=== PATIENT | male | born 1970 | race Caucasian/White ===

== ENCOUNTER 2017-02-04 19:21 | Emergency (ER) | payer BC ==
[2017-02-04] MEDS ORDERED: Cephalexin CAP* 500 MG PO ONE (19:29)
--- NOTE | 2017-02-04 19:36 | UC ---
UC General HPI - HPI Summary HPI Summary: Patient cut the left thumb on a knife 3 days ago, the cut is scabbed, but increased redness and swelling around the cut, area is non fluctuant, UTD on tetanus. - History of Current Complaint Stated Complaint: LEFT THUMB SKIN COMPLAINT Time Seen by Provider: 02/04/17 19:27 Hx Obtained From: Patient Onset/Duration: Sudden Onset, Lasting Days Timing: Constant Onset Severity: Mild Current Severity: Moderate - Allergy/Home Medications Allergies/Adverse Reactions: Allergies Allergy/AdvReac Type Severity Reaction Status Date / Time No Known Allergies Allergy Verified 02/04/17 19:29 Home Medications: Home Medications Atorvastatin* [Lipitor*] 20 mg PO DAILY 02/04/17 [History Confirmed 02/04/17] Lisinopril [Prinivil TAB 20 mg] 20 mg PO DAILY 02/04/17 [History Confirmed 02/04] PMH/Surg Hx/FS Hx/Imm Hx Previously Healthy: Yes - Surgical History Surgical History: None - Family History Known Family History: Negative: Cardiac Disease, Hypertension - Social History Alcohol Use: None Substance Use Type: None Smoking Status (MU): Never Smoked Tobacco Review of Systems Constitutional: Negative Skin: Other - closed small laceration with increased redness Eyes: Negative ENT: Negative Respiratory: Negative Cardiovascular: Negative Gastrointestinal: Negative Genitourinary: Negative Motor: Negative Neurovascular: Negative Musculoskeletal: Negative Neurological: Negative Psychological: Negative Is Patient Immunocompromised?: No All Other Systems Reviewed And Are Negative: Yes Physical Exam Triage Information Reviewed: Yes Appearance: Well-Appearing, Well-Nourished, Pain Distress Vital Signs Reviewed: Yes Eye Exam: Normal ENT Exam: Normal Dental Exam: Normal Neck exam: Normal Respiratory Exam: Normal Cardiovascular Exam: Normal Abdominal Exam: Normal Bowel Sounds: Positive: Present Musculoskeletal Exam: Normal Neurological Exam: Normal Psychological Exam: Normal Skin: Positive: Other - small 2 cm lac closed with scab, mild erythema and swelling around the site, painful with palpation Course/Dx - Course Course Of Treatment: hx obtained, exam performed ,meds reviewed, treated for infected subcutaneous laceration - Differential Dx - Multi-Symptom Provider Diagnoses: wound infection Discharge - Discharge Plan Condition: Stable Disposition: HOME Prescriptions: Cephalexin CAP* [Keflex CAP*] 500 mg PO TID #20 cap Patient Education Materials: Wound Infection (ED) Additional Instructions: 1. take the medication as prescribed. 2. warm water soaks daily for the next few days 3. FOllow up if needed for any increase in symtpoms
[2017-02-04 20:01] VITALS: BP 137/90
== END 2017-02-04 19:53 | disposition home or self-care (01) ==
LOC: UCCORT 19:21
DX: S61.012A Laceration without foreign body of left thumb without damage to nail, initial encounter (principal); L08.9 Local infection of the skin and subcutaneous tissue, unspecified; W26.0XXA Contact with knife, initial encounter; Y93.9 Activity, unspecified; Y92.9 Unspecified place or not applicable
CPT/HCPCS: 99202; A9270-GY; G0463

== ENCOUNTER 2017-06-15 10:53 | Emergency (ER) | payer BC ==
[2017-06-15 12:02] VITALS: BP 136/93
--- NOTE | 2017-06-15 12:54 | UC ---
Skin Complaint HPI - HPI Summary HPI Summary: 2 DAYS AGO WAS HORSING AROUND WITH HIS SON AND SCRATCHED HIS RIGHT THUMB ON HIS BRACES. ABRASION IS HEALING WELL BUT PT WANTED TO BE SURE IT WAS NOT INFECTED. IS SLIGHTLY TENDER TO TOUCH. UTD TETANUS. - History of Current Complaint Chief Complaint: UCGeneralIllness Time Seen by Provider: 06/15/17 12:49 Stated Complaint: RT HAND COMPLAINT Hx Obtained From: Patient Onset/Duration: Sudden Onset, Lasting Days, Still Present - BUT HEALING Timing: Constant Onset Severity: Moderate Current Severity: Mild Pain Intensity: 1 Pain Scale Used: 0-10 Numeric Location: Hand (Right) - RIGHT THUMB Aggravating Factor(s): Touch Alleviating Factor(s): Nothing Associated Signs & Symptoms: Positive: Tenderness - Allergy/Home Medications Allergies/Adverse Reactions: Allergies Allergy/AdvReac Type Severity Reaction Status Date / Time No Known Allergies Allergy Verified 06/15/17 11:56 Review of Systems Constitutional: Negative Skin: Other - ABRASION Respiratory: Negative Cardiovascular: Negative Gastrointestinal: Negative All Other Systems Reviewed And Are Negative: Yes PMH/Surg Hx/FS Hx/Imm Hx Endocrine History: Dyslipidemia Cardiovascular History: Hypertension - Surgical History Surgical History: None - Family History Known Family History: Negative: Cardiac Disease, Hypertension - Social History Alcohol Use: None Substance Use Type: None Smoking Status (MU): Never Smoked Tobacco - Immunization History Most Recent Influenza Vaccination: no 2016 Physical Exam Triage Information Reviewed: Yes Appearance: Well-Appearing, No Pain Distress, Well-Nourished Vital Signs: Initial Vital Signs Temp 97.7 F 06/15/17 11:57 Pulse 73 06/15/17 11:57 Resp 16 06/15/17 11:57 BP 136/93 06/15/17 11:57 Pulse Ox 98 06/15/17 11:57 Vital Signs Reviewed: Yes Eyes: Positive: Conjunctiva Clear ENT: Positive: Hearing grossly normal Neck: Positive: Supple Respiratory: Positive: No respiratory distress, No accessory muscle use Cardiovascular: Positive: Pulses Normal Abdomen Description: Positive: Soft Musculoskeletal: Positive: ROM Intact, No Edema Neurological: Positive: Alert Psychological: Positive: Age Appropriate Behavior Skin: Positive: Other - 1.5CM LINEAR ABRASION - HEALING WELL. NO DRAINAGE. MILDLY TENDER Course/Dx - Diagnoses Provider Diagnoses: ABRASION RIGHT THUMB - HEALING Discharge - Discharge Plan Condition: Stable Disposition: HOME Patient Education Materials: Abrasion (ED) Referrals: Non Staff,Doctor [Primary Care Provider] - Additional Instructions: NO INFECTION ON EXAM TODAY. NO ACUTE INTERVENTION REQUIRED. SEEK FOLLOW-UP IF YOU DEVELOP SPREADING REDNESS OF THE SKIN, PURULENT DRAINAGE, FEVER, INCREASED PAIN OR ANY OTHER CONCERNING SYMPTOMS. CALL THE NUMBER BELOW FOR ASSISTANCE IN ESTABLISHING WITH A PCP An additional resource available to assist in finding the appropriate physician for your health care needs is [facility] ([facility]). You may contact them by calling [phone].
== END 2017-06-15 13:00 | disposition home or self-care (01) ==
LOC: UCCORT 10:53
DX: S60.311A Abrasion of right thumb, initial encounter (principal); Y93.83 Activity, rough housing and horseplay; Y93.9 Activity, unspecified; Y92.9 Unspecified place or not applicable
CPT/HCPCS: 99211; G0463